=== PATIENT | female | born 1990 | race Caucasian/White ===

== ENCOUNTER 2024-04-16 20:42 | Emergency (ER) | payer OTHER ==
[~2024-04-16] VITALS: Ht 165.1 cm; Wt 56.8 kg
[2024-04-16] MEDS ORDERED: METH-659 PO (22:42)
[2024-04-16] MEDS ORDERED: ACET-2080 PO (22:42)
[2024-04-16] MEDS ORDERED: IBUP-1554 PO (22:42)
[2024-04-16] MEDS: METHOCARBAMOL 500 MG TABLET PO ONE (22:51)
[2024-04-16] MEDS: IBUPROFEN 600 MG TABLET PO ONE (22:52)
[2024-04-16] MEDS: ACETAMINOPHEN/CODEINE 300-30 MG TABLET PO ONE (22:52)
[2024-04-16 23:37] VITALS: BP 129/77; PULSE 78; RESP 16; TEMP 98.3; O2SAT 100
== END 2024-04-16 23:39 | disposition home or self-care (01) ==
LOC: EMS 20:42
DX: S39.012A Strain of muscle, fascia and tendon of lower back, initial encounter (principal); V89.2XXA Person injured in unspecified motor-vehicle accident, traffic, initial encounter; Y93.89 Activity, other specified; Y92.89 Other specified places as the place of occurrence of the external cause; Y99.8 Other external cause status
CPT/HCPCS: 72100; 99284; Z7502; Z7610